=== PATIENT | male | born 1960 | race Caucasian/White ===

== ENCOUNTER 2018-01-06 16:48 | Emergency (ER) | payer BC ==
--- NOTE | 2018-01-06 19:06 | ED ---
General Adult HPI - General Chief complaint: Psychiatric Symptoms Stated complaint: Mental health Time Seen by Provider: 01/06/18 17:32 Source: patient Mode of arrival: ambulatory Limitations: no limitations - History of Present Illness Initial comments: 57 years old male complaining about the confusion he has a history of DVT and PE and he is on now blood thinners he was used to be on [place] now he is on a Coumadin he said he feels there is some formula he his mind is not clear and now he feels he is confused so does his family also family feels he has been depressed for the last 3 days he hasn't got out of the bed which is a pretty active and dry he is on the golf the time and also been complaining about chest pressure off-and-on for about a 1 month now he was seen at [facility]. He had a complete cardiac workup according to his family and he was negative. he denies any suicidal or homicidal ideation. - Related Data Home Medications Medication Instructions Recorded Confirmed Acetaminophen Tab [Tylenol Tab] 325 mg PO Q4H PRN 01/06/18 01/06/18 Levothyroxine Sodium [Synthroid] 200 mcg PO DAILY 01/06/18 01/06/18 Warfarin Sodium 10 mg PO SUTUWETHSA 01/06/18 01/06/18 Warfarin [Coumadin] 12.5 mg PO MOFR 01/06/18 01/06/18 Allergies Allergy/AdvReac Type Severity Reaction Status Date / Time Sulfa (Sulfonamide Allergy Unknown Verified 01/06/18 19:06 Antibiotics) Review of Systems ROS Statement: Those systems with pertinent positive or pertinent negative responses have been documented in the HPI. ROS Other: All systems not noted in ROS Statement are negative. Past Medical History Past Medical History: Osteoarthritis (OA), Pulmonary Embolus (PE), Thyroid Disorder Additional Past Medical History / Comment(s): vertigo Past Surgical History: Orthopedic Surgery, Tonsillectomy Additional Past Surgical History / Comment(s): radiation to throid, IVC blood clot filter Past Psychological History: Anxiety, Depression Smoking Status: Former smoker Past Alcohol Use History: Rare Past Drug Use History: None Reported General Exam - General Exam Comments Initial Comments: General: The patient is awake and alert, in no distress, and does not appear acutely ill. GCS is 15 Skin: Skin is warm and dry and no rashes or lesions are noted. Eye: Pupils are equal, round and reactive to light, extra-ocular movements are intact; there is normal conjunctiva bilaterally. Ears, nose, mouth and throat: There are moist mucous membranes and no oral lesions. Neck: The neck is supple, there is no tenderness or JVD. Cardiovascular: There is a regular rate and rhythm. No murmur, rub or gallop is appreciated. Respiratory: To auscultation bilateral, no wheezing no rhonchi no distress respiratory aviles noticed Gastrointestinal: Soft, non-distended, non-tender abdomen without masses or organomegaly noted. There is no rebound or guarding present. Bowel sounds are unremarkable. Back: There is no tenderness to palpation in the midline. There is no obvious deformity. Musculoskeletal: Normal ROM, no tenderness, There is no pedal edema. There is no calf tenderness or swelling. No cords were appreciated. Neurological: CN II-XII intact, Cranial nerves III through XII are intact. There are no obvious motor or sensory deficits. Coordination appears grossly intact. Speech is normal. Psychiatric: Cooperative, seems depressed him and denies any suicidal or homicidal ideation Limitations: no limitations Course Vital Signs 01/06/18 01/06/18 17:11 18:20 Temperature 98 F Pulse Rate 96 Respiratory 18 16 Rate Blood Pressure 111/75 O2 Sat by Pulse 98 Oximetry Patient is reassessed at down at 2100 white count is 13.1 compressive metabolic panel is normal head CT is normal chest x-rays normal INR and troponin are unremarkable and now he is medically cleared to consult EPS to look into his depression clinically he does seem depressed. EKG is normal sinus ventricular rate is 82 KS interval is 144 QRS duration is 1 of 4 QT/QTc is 374/460 review of this EKG revealed T-wave inversion in lead [address] elevation or ST depression noticed Medical Decision Making - Lab Data Result diagrams: 01/06/18 19:45 01/06/18 19:45 Lab Results 01/06/18 01/06/18 01/06/18 Range/Units 19:45 19:45 19:45 WBC 13.1 H (3.8-10.6) k/uL RBC 5.12 (4.30-5.90) m/uL Hgb 15.5 (13.0-17.5) gm/dL Hct 46.2 (39.0-53.0) % MCV 90.1 (80.0-100.0) fL MCH 30.3 (25.0-35.0) pg MCHC 33.7 (31.0-37.0) g/dL RDW 13.3 (11.5-15.5) % Plt Count 182 (150-450) k/uL Neutrophils % 64 % Lymphocytes % 25 % Monocytes % 7 % Eosinophils % 2 % Basophils % 0 % Neutrophils # 8.4 H (1.3-7.7) k/uL Lymphocytes # 3.3 (1.0-4.8) k/uL Monocytes # 0.9 (0-1.0) k/uL Eosinophils # 0.2 (0-0.7) k/uL Basophils # 0.1 (0-0.2) k/uL PT (9.0-12.0) sec INR (<1.2) APTT (22.0-30.0) sec Sodium 137 (137-145) mmol/L Potassium 4.4 (3.5-5.1) mmol/L Chloride 109 H (98-107) mmol/L Carbon Dioxide 20 L (22-30) mmol/L Anion Gap 8 mmol/L BUN 24 H (9-20) mg/dL Creatinine 0.89 (0.66-1.25) mg/dL Est GFR (CKD-EPI)AfAm >90 (>60 ml/min/1.73 sqM) Est GFR (CKD-EPI)NonAf >90 (>60 ml/min/1.73 sqM) Glucose 96 (74-99) mg/dL Calcium 10.0 (8.4-10.2) mg/dL Total Bilirubin 0.3 (0.2-1.3) mg/dL AST 23 (17-59) U/L ALT 41 (21-72) U/L Alkaline Phosphatase 94 (38-126) U/L Total Creatine Kinase 87 (55-170) U/L CK-MB (CK-2) 1.0 (0.0-2.4) ng/mL CK-MB (CK-2) Rel Index 1.1 Troponin I <0.012 (0.000-0.034) ng/mL Total Protein 6.3 (6.3-8.2) g/dL Albumin 4.0 (3.5-5.0) g/dL Urine Color Urine Appearance (Clear) Urine pH (5.0-8.0) Ur Specific [place] (1.001-1.035) Urine Protein (Negative) Urine Glucose (UA) (Negative) Urine Ketones (Negative) Urine Blood (Negative) Urine Nitrite (Negative) Urine Bilirubin (Negative) Urine Urobilinogen (<2.0) mg/dL Ur Leukocyte Esterase (Negative) 01/06/18 01/06/18 Range/Units 19:45 22:10 WBC (3.8-10.6) k/uL RBC (4.30-5.90) m/uL Hgb (13.0-17.5) gm/dL Hct (39.0-53.0) % MCV (80.0-100.0) fL MCH (25.0-35.0) pg MCHC (31.0-37.0) g/dL RDW (11.5-15.5) % Plt Count (150-450) k/uL Neutrophils % % Lymphocytes % % Monocytes % % Eosinophils % % Basophils % % Neutrophils # (1.3-7.7) k/uL Lymphocytes # (1.0-4.8) k/uL Monocytes # (0-1.0) k/uL Eosinophils # (0-0.7) k/uL Basophils # (0-0.2) k/uL PT 29.2 H (9.0-12.0) sec INR 3.3 H (<1.2) APTT 33.0 H (22.0-30.0) sec Sodium (137-145) mmol/L Potassium (3.5-5.1) mmol/L Chloride (98-107) mmol/L Carbon Dioxide (22-30) mmol/L Anion Gap mmol/L BUN (9-20) mg/dL Creatinine (0.66-1.25) mg/dL Est GFR (CKD-EPI)AfAm (>60 ml/min/1.73 sqM) Est GFR (CKD-EPI)NonAf (>60 ml/min/1.73 sqM) Glucose (74-99) mg/dL Calcium (8.4-10.2) mg/dL Total Bilirubin (0.2-1.3) mg/dL AST (17-59) U/L ALT (21-72) U/L Alkaline Phosphatase (38-126) U/L Total Creatine Kinase (55-170) U/L CK-MB (CK-2) (0.0-2.4) ng/mL CK-MB (CK-2) Rel Index Troponin I (0.000-0.034) ng/mL Total Protein (6.3-8.2) g/dL Albumin (3.5-5.0) g/dL Urine Color Yellow Urine Appearance Clear (Clear) Urine pH 5.0 (5.0-8.0) Ur Specific [place] 1.028 (1.001-1.035) Urine Protein Trace H (Negative) Urine Glucose (UA) Negative (Negative) Urine Ketones Negative (Negative) Urine Blood Negative (Negative) Urine Nitrite Negative (Negative) Urine Bilirubin Negative (Negative) Urine Urobilinogen <2.0 (<2.0) mg/dL Ur Leukocyte Esterase Negative (Negative) Disposition Clinical Impression: Confusion, Chest pain, Depression Disposition: HOME SELF-CARE Condition: Good Instructions: Depression (ED) Additional Instructions: Shouldn't was educated about seeing the psychologist and psychiatrist he agrees with that and he was advised to return to ER if symptoms get worse Is patient prescribed a controlled substance at d/c from ED?: No Referrals: Jorge A Mares PAC [Primary Care Provider] - 1-2 days
[2018-01-06 19:52] LABS: Basophils # (A) 0.1 k/uL (0-0.2); Basophils % (A) 0 %; Eosinophils # (A) 0.2 k/uL (0-0.7); Eosinophils % (A) 2 %; HCT 46.2 % (39.0-53.0); HGB 15.5 gm/dL (13.0-17.5); Lymphocytes # (A) 3.3 k/uL (1.0-4.8); Lymphocytes % (A) 25 %; MCH 30.3 pg (25.0-35.0); MCHC 33.7 g/dL (31.0-37.0); MCV 90.1 fL (80.0-100.0); Mean Platelet Volume 7.7; Monocytes # (A) 0.9 k/uL (0-1.0); Monocytes % (A) 7 %; Neutrophils # (A) 8.4 k/uL (1.3-7.7); Neutrophils % (A) 64 %; Platelet Count 182 k/uL (150-450); RBC 5.12 m/uL (4.30-5.90); RDW 13.3 % (11.5-15.5); WBC 13.1 k/uL (3.8-10.6)
[2018-01-06 20:14] VITALS: RESP 16
[2018-01-06 20:20] LABS: ALT 41 U/L (21-72); AST 23 U/L (17-59); Alkaline Phosphatase 94 U/L (38-126); Anion Gap 8 mmol/L; Blood Urea Nitrogen 24 mg/dL (9-20); Carbon Dioxide 20 mmol/L (22-30); Chloride 109 mmol/L (98-107); Glucose 96 mg/dL (74-99); Potassium 4.4 mmol/L (3.5-5.1); Sodium 137 mmol/L (137-145); Total Bilirubin 0.3 mg/dL (0.2-1.3); Total Protein 6.3 g/dL (6.3-8.2)
[2018-01-06 20:21] LABS: Creatine Kinase 87 U/L (55-170)
[2018-01-06 20:22] LABS: INR 3.3 (<1.2); Prothrombin Time 29.2 sec (9.0-12.0)
--- NOTE | 2018-01-06 20:33 | CT ---
EXAMINATION TYPE: CT brain wo con DATE OF EXAM: 01/06/2018 COMPARISON: None HISTORY: CONFUSION AND DIZZINESS CT DLP: 1049.8 mGycm Automated exposure control for dose reduction was used. FINDINGS: Ventricles of normal size. There is no mass effect nor midline shift. There is no sign of intracrania l hemorrhage. The calvarium is intact. IMPRESSION: NEGATIVE CT SCAN OF THE BRAIN.
[2018-01-06 20:34] LABS: Troponin I <0.012 ng/mL (0.000-0.034)
--- NOTE | 2018-01-06 20:35 | XR ---
EXAMINATION TYPE: XR chest 2V DATE OF EXAM: 01/06/2018 COMPARISON: NONE HISTORY: Altered mental status TECHNIQUE: Frontal and lateral views of the chest are obtained. FINDINGS: There is no heart failure nor confluent pneumonic infiltrate. Heart size is normal. Bony t horax is intact. There is spurring in the thoracic spine. There is no sign of pleural effusion. IMPRESSION: No active cardiopulmonary disease.
[2018-01-06 22:24] LABS: Appearance,Urine Clear (Clear); Bilirubin,Urine Negative (Negative); Blood,Urine Negative (Negative); Color,Urine Yellow; Glucose,Urine (UA) Negative (Negative); Ketones,Urine Negative (Negative); Leukocyte Esterase,Urine Negative (Negative); Nitrite,Urine Negative (Negative); Protein,Urine Trace (Negative); Specific Gravity,Urine 1.028 (1.001-1.035); Urobilinogen,Urine <2.0 mg/dL (<2.0)
[2018-01-06 22:34] LABS: Amphetamine Screen,Urine Not Detected (NotDetected); Barbiturate Screen,Urine Not Detected (NotDetected); Benzodiazepines Screen,Urine Not Detected (NotDetected); Cocaine Screen,Urine Not Detected (NotDetected); Methadone Screen, Urine Not Detected (NotDetected); Opiate Screen,Urine Not Detected (NotDetected); Oxycodone Screen, Urine Not Detected (NotDetected); Phencyclidine Screen,Urine Not Detected (NotDetected); Tricyclic Antidepressant,Urine Not Detected (NotDetected); Urn Cannabinoid Scrn Detected (NotDetected)
[2018-01-06 22:35] VITALS: BP 117/60; PULSE 82; TEMP 98.3
== END 2018-01-06 22:30 | disposition home or self-care (01) ==
LOC: EC 16:48
DX: F32.9 Major depressive disorder, single episode, unspecified (principal); R41.0 Disorientation, unspecified; R07.89 Other chest pain; E07.9 Disorder of thyroid, unspecified; Z86.711 Personal history of pulmonary embolism; Z87.891 Personal history of nicotine dependence; Z79.01 Long term (current) use of anticoagulants; Z79.899 Other long term (current) drug therapy; Z88.2 Allergy status to sulfonamides
CPT/HCPCS: 36415; 70450; 71046; 80053; 80306; 81003; 82075; 82550; 82553; 84484; 85025; 85610; 85730; 93005; 99285

== ENCOUNTER 2018-12-03 12:36 | Inpatient (IN) | payer BC ==
--- NOTE | 2018-12-03 14:11 | ED ---
Psych HPI - General Chief Complaint: Psychiatric Symptoms Stated Complaint: Mental Health Time Seen by Provider: 12/03/18 13:00 Source: patient, RN notes reviewed, old records reviewed Mode of arrival: ambulatory - History of Present Illness Initial Comments: This is a 58-year-old male to the ER for evaluation. Today comes in the ER for evaluation of psychiatric illness per patient is expressed recent increase in depression, showing increased illness and psychiatric disease. Patient states that he does want to kill self and is having chest regarding suicide. MD Complaint: suicidal ideation, feels depressed -: unknown Associated Psychiatric Symptoms: depression, suicidal ideation History of same: Yes Quality: constant Improves With: none Worsens With: none Context: not taking psychiatric medications, significant life stressor Associated Symptoms: denies other symptoms Treatments Prior to Arrival: placed on mental health hold If Self Harm: admits thoughts of self harm - Related Data Home Medications Medication Instructions Recorded Confirmed Acetaminophen Tab [Tylenol Tab] 325 mg PO Q4H PRN 01/06/18 12/03/18 Levothyroxine Sodium [Synthroid] 200 mcg PO DAILY 01/06/18 12/03/18 Warfarin Sodium 10 mg PO SUTUWETHSA 01/06/18 12/03/18 Warfarin [Coumadin] 12.5 mg PO MOFR 01/06/18 12/03/18 PARoxetine [Paxil] 20 mg PO DAILY 12/03/18 12/03/18 Allergies Allergy/AdvReac Type Severity Reaction Status Date / Time Sulfa (Sulfonamide Allergy Unknown Verified 12/03/18 13:06 Antibiotics) Review of Systems ROS Statement: Those systems with pertinent positive or pertinent negative responses have been documented in the HPI. ROS Other: All systems not noted in ROS Statement are negative. Past Medical History Past Medical History: Osteoarthritis (OA), Pulmonary Embolus (PE), Thyroid Disorder Additional Past Medical History / Comment(s): vertigo History of Any Multi-Drug Resistant Organisms: None Reported Past Surgical History: Orthopedic Surgery, Tonsillectomy Additional Past Surgical History / Comment(s): radiation to throid, IVC blood clot filter Past Psychological History: Anxiety, Depression Smoking Status: Former smoker Past Alcohol Use History: Rare Past Drug Use History: None Reported General Exam Limitations: no limitations General appearance: alert, in no apparent distress Head exam: Present: atraumatic, normocephalic, normal inspection Eye exam: Present: normal appearance, PERRL, EOMI. Absent: scleral icterus, conjunctival injection, periorbital swelling ENT exam: Present: normal exam, mucous membranes moist Neck exam: Present: normal inspection. Absent: tenderness, meningismus, lymphadenopathy Respiratory exam: Present: normal lung sounds bilaterally. Absent: respiratory distress, wheezes, rales, rhonchi, stridor Cardiovascular Exam: Present: regular rate, normal rhythm, normal heart sounds. Absent: systolic murmur, diastolic murmur, rubs, gallop, clicks GI/Abdominal exam: Present: soft, normal bowel sounds. Absent: distended, tenderness, guarding, rebound, rigid Extremities exam: Present: normal inspection, full ROM, normal capillary refill. Absent: tenderness, pedal edema, joint swelling, calf tenderness Back exam: Present: normal inspection Neurological exam: Present: alert, oriented X3, CN II-XII intact Psychiatric exam: Present: normal affect, normal mood Skin exam: Present: warm, dry, intact, normal color. Absent: rash Course Vital Signs 12/03/18 12:52 Temperature 97.9 F Pulse Rate 89 Respiratory 18 Rate Blood Pressure 109/74 O2 Sat by Pulse 97 Oximetry - Reevaluation(s) Reevaluation #1: 12/03/18 15:13 Medically clear for psychiatric evaluation Medical Decision Making - Medical Decision Making 58 male the ER for evaluation presented today for evaluation regards to psychiatric illness. Patient will be admitted for psychiatric illness, evaluation and treatment Disposition Clinical Impression: Depression, Suicidal ideation Disposition: TRANSFER TO PSYCH HOSP/UNIT Condition: Fair Is patient prescribed a controlled substance at d/c from ED?: No
[2018-12-03] MEDS ORDERED: MAGNESIUM HYDROXIDE 2,400 MG/10 ML CUP PO PRN (16:00)
[2018-12-03] MEDS ORDERED: ACETAMINOPHEN TAB 325 MG TAB PO PRN ×2 (16:00→16:02)
[2018-12-03] MEDS ORDERED: MAG HYDROX/AL HYDROX/SIMETH 30 ML CUP PO PRN (16:00)
[2018-12-03 17:11] LABS: INR 2.4 (<1.2); Prothrombin Time 23.1 sec (9.0-12.0)
[2018-12-03 17:30] VITALS: BMI 34.0
[2018-12-03] MEDS: WARFARIN 2.5 MG TAB PO SCH (18:54)
[2018-12-03] MEDS: WARFARIN 10 MG TAB PO SCH (18:54)
[2018-12-04 03:53] LABS: Hemoglobin A1C 6.4 % (4.0-6.0)
[2018-12-04] MEDS: LEVOTHYROXINE 100 MCG TAB PO SCH (06:24)
--- NOTE | 2018-12-04 07:09 | P.MDCNMH ---
History of Present Illness H&P Date: 12/04/18 Chief Complaint: depression and suicidal ideation 58-year-old male with history of depression, hypothyroid, clotting disorder Patient presented the hospital with overwhelming depression and suicidal ideation due to overwhelming depression . patient reports taking Paxil but is not helping to control his symptoms. Patient reports being compliant with his levothyroxine and Coumadin patient has history of clotting disorder with mutation MTHFR He currently denies any physical complaints denies any chest pain or trouble breathing denies any fevers or chills or coughing denies any abdominal pain nausea or vomiting. Patient denies any GI bleeding Review of Systems Pertinent positives as noted in HPI. 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 History of Any Multi-Drug Resistant Organisms: None Reported Past Surgical History: Orthopedic Surgery, Tonsillectomy Additional Past Surgical History / Comment(s): radiation to throid, IVC blood clot filter Additional Past Anesthesia/Blood Transfusion Reaction / Comment(s): no transfusion hx Past Psychological History: Anxiety, Depression Smoking Status: Current some day smoker Past Alcohol Use History: Rare Additional Past Alcohol Use History / Comment(s): none Past Drug Use History: None Reported - Past Family History family Additional Family Medical History / Comment(s): denies clotting disorder in the famil y Medications and Allergies Home Medications Medication Instructions Recorded Confirmed Type Acetaminophen Tab [Tylenol Tab] 325 mg PO Q4H PRN 01/06/18 12/03/18 History Levothyroxine Sodium [Synthroid] 200 mcg PO DAILY 01/06/18 12/03/18 History Warfarin Sodium 10 mg PO SUTUTHSA 01/06/18 12/03/18 History Warfarin [Coumadin] 12.5 mg PO MOWEFR 01/06/18 12/03/18 History PARoxetine [Paxil] 20 mg PO DAILY 12/03/18 12/03/18 History Allergies Allergy/AdvReac Type Severity Reaction Status Date / Time Sulfa (Sulfonamide Allergy Unknown Verified 12/03/18 16:39 Antibiotics) Physical Exam Vitals: Vital Signs Temp Pulse Pulse Resp BP BP Pulse Ox 12/04/18 06:39 97.7 F 62 16 106/59 12/03/18 16:48 98 F 74 18 117/68 12/03/18 16:30 98.4 F 84 16 115/78 98 12/03/18 12:52 97.9 F 89 18 109/74 97 Intake and Output 12/03/18 12/04/18 12/04/18 22:59 06:59 14:59 Other: Weight 107.507 kg Constitutional: No acute distress, conversant, pleasant Eyes: Anicteric sclerae, moist conjunctiva, no lid-lag Pupils equal round reactive to light ENMT: NC/AT Oropharynx clear, no erythema, exudates Neck: Supple, FROM, no masses, or JVD No carotid bruits No thyromegaly Lungs: Clear to auscultation Clear to percussion Normal respiratory effort, no accessory muscle use Cardiovascular: Heart regular in rate and rhythm, No murmurs, gallops, or rubs No peripheral edema Abdominal: Soft Nontender, no guarding, rebound or rigidity Abdomen moving with respiration Normoactive bowel sounds No hepatomegaly, No splenomegaly No palpable mass No abdominal wall hernia noted Skin: Normal temperature, tone, texture, turgor No induration No subcutaneous nodules No rash, lesions No ulcers Extremities: No digital cyanosis No clubbing Pedal pulses intact and symmetrical Radial pulses intact and symmetrical No calf tenderness Psychiatric: Alert and oriented to person, place and time depressed affect fair judgment Neuro Muscles Strength 5/5 in all 4 extremities Sensation to light touch grossly present throughout Cranial nerves II-XII grossly intact No focal sensory deficits Lymphatics: no palpable cervical or supraclavicular , or inguinal lymph nodes Cranial Nerve Examination - Cranial Nerves Cranial Nerve II- Optic: Intact Cranial Nerve III- Oculomotor: Intact Cranial Nerve IV- Trochlear: Intact Cranial Nerve V- Trigeminal: Intact Cranial Nerve - Abducens: Intact Cranial Nerve VII- Facial: Intact Cranial Nerve VIII- Auditory: Intact Cranial Nerve IX- Glossopharyngeal: Intact Cranial Nerve X- Vagus: Intact Cranial Nerve XI- Accessory: Intact Cranial Nerve XII- Hypoglossal: Intact Results Labs: Abnormal Lab Results - Last 24 Hours (Table) 12/03/18 12/03/18 Range/Units 16:38 16:38 PT 23.1 H (9.0-12.0) sec INR 2.4 H (<1.2) Hemoglobin A1c 6.4 H (4.0-6.0) % Assessment and Plan Assessment: 58-year-old male with history of hypothyroidism and depression and history of clotting disorder medicine consulted to assist with medical management patient admitted for depression and suicidal ideation Plan: Suicidal ideation and depression Management per psych Hypothyroid Continue levothyroxine Check TSH History of clotting disorder continue with Coumadin: INR 2-3 currently therapeutic Dosing by pharmacy Thank you for allowing us to participate in the care of this patient. We will follow peripherally. Do not hesitate to contact us with questions. Someone can be reached from the [facility] hospitalist group at all hours of the day at [phone].
[2018-12-04 08:41] LABS: Basophils % (A) 0 %; Eosinophils # (A) 0.2 k/uL (0-0.7); Eosinophils % (A) 2 %; HCT 45.9 % (39.0-53.0); HGB 14.6 gm/dL (13.0-17.5); Lymphocytes % (A) 26 %; MCH 29.2 pg (25.0-35.0); MCHC 31.8 g/dL (31.0-37.0); MCV 91.9 fL (80.0-100.0); Mean Platelet Volume 7.9; Monocytes # (A) 0.7 k/uL (0-1.0); Monocytes % (A) 6 %; Neutrophils # (A) 7.4 k/uL (1.3-7.7); Neutrophils % (A) 64 %; Platelet Count 158 k/uL (150-450); RBC 4.99 m/uL (4.30-5.90); RDW 13.5 % (11.5-15.5); WBC 11.6 k/uL (3.8-10.6)
[2018-12-04 08:47] LABS: ALT 24 U/L (21-72); AST 20 U/L (17-59); African American GFR (CKD) >90 (>60 ml/min/1.73 sqM); Albumin 3.9 g/dL (3.5-5.0); Alkaline Phosphatase 86 U/L (38-126); Anion Gap 8 mmol/L; Blood Urea Nitrogen 14 mg/dL (9-20); Calcium 9.1 mg/dL (8.4-10.2); Carbon Dioxide 25 mmol/L (22-30); Chloride 107 mmol/L (98-107); Cholesterol 194 mg/dL (<200); Glucose 100 mg/dL (74-99); HDL Cholesterol 41 mg/dL (40-60); LDL Cholesterol,Calculated 128 mg/dL (0-99); Potassium 4.6 mmol/L (3.5-5.1); Sodium 140 mmol/L (137-145); Total Bilirubin 0.5 mg/dL (0.2-1.3); Total Protein 6.2 g/dL (6.3-8.2); Triglycerides 126 mg/dL (<150)
[2018-12-04] MEDS ORDERED: PARoxetine 20 MG TAB PO SCH (09:00)
[2018-12-04 09:08] LABS: INR 2.3 (<1.2); Prothrombin Time 22.4 sec (9.0-12.0)
[2018-12-04] MEDS ORDERED: PARoxetine 20 MG TAB PO STA (11:34)
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
[2018-12-04] MEDS: WARFARIN 10 MG TAB PO SCH (17:33)
[2018-12-05] MEDS: LEVOTHYROXINE 100 MCG TAB PO SCH (06:14)
[2018-12-05 08:52] LABS: INR 2.4 (<1.2); Prothrombin Time 23.1 sec (9.0-12.0)
[2018-12-05] MEDS ORDERED: PARoxetine 20 MG TAB PO SCH (09:00)
[2018-12-05] MEDS: PARoxetine 20 MG TAB PO SCH (14:44)
--- NOTE | 2018-12-05 15:59 | PN ---
PROGRESS NOTE DATE OF SERVICE: 12/05/2018. CHIEF COMPLAINT: The patient was depressed. He had suicide thoughts. He says he felt he was in a fog and could not think. INTERVAL HISTORY: Patient has been doing fair. He had a quiet evening last night. He comes out in the day area. He will interact some with others. Mostly he keeps to himself. He will read. He seems to have a fair to good concentration when he is engaged in some reading. He said he slept fair last night. He notes that when he wakes up in the morning, he will get some anxiety and panicky symptoms. He says he gets shaky. He seemed to suggest that he may get that about a half hour after he takes his morning medications though, he also says that it seems to be during the time when he is just getting up. He is trying to get to his meal. He gets called for taking medications and so forth. He acknowledges that he has been having that problem at home prior to coming into the hospital. He still relates it to being about a half hour after he takes Paxil. He says that overall he is doing fair. He has been attending groups. He says that he has a lot of worries and has had difficulty sorting out his thoughts. He continues to be quite depressed in his mood. He is comfortable with the idea setting up a family meeting with his for further treatment planning. He appears to tolerate his psychotropic medications. MENTAL STATUS: Patient gave good eye contact. Psychomotor activity was restless. He answered questions with direct responses. His thoughts were clear. His affect was quite anxious. He was depressed. He seems significantly distressed. There was no indication of thought disorder. Cognition was clear. ASSESSMENT: I will continue the current diagnosis and treatment plan. I will continue psychotropic medications the same. It is not clear that he is having a side effect from his Paxil where he gets restless and anxious, possibly half hour after he takes his medications. There is a significant likelihood that he may be having diurnal mood variation related to depression and that the morning time is worse for him. At this point, I will switch his Paxil to 2 in the afternoon. I discussed with the patient that if he still has the morning time issues after switching the Paxil to the afternoon then we know the main issue is depression, not his medications. If he has less problems in the morning time, though then has some similar reaction in the afternoon after he takes his Paxil, then there might be consideration to switching to an alternative antidepressant. I reviewed treatment issues, dosing strategies relating to his antidepressant. I discussed that given the seriousness of his depression, we may need to consider further increase in Paxil whether here or as an outpatient. I would look for priority of setting up a family meeting with the patient and his . We will continue to focus on stabilization and discharge planning. ANA / GINETTE: [id number] /
[2018-12-05] MEDS: WARFARIN 10 MG TAB PO SCH (18:06)
[2018-12-06] MEDS ORDERED: LEVOTHYROXINE 75 MCG TAB PO SCH (06:30)
[2018-12-06 09:32] LABS: INR 2.2 (<1.2); Prothrombin Time 21.3 sec (9.0-12.0)
--- NOTE | 2018-12-06 11:44 | P.PN ---
Progress Note - Text Progress Note Date: 12/06/18 Interval History: Patient is a 58-year-old male who is being seen in coverage. Patient was admitted due to increasing anxiety and depressive symptoms. Patient has been treated as an outpatient with Paxil which had been increased recently from 10 mg to 20 mg. He states that his anxiety symptoms consist of feeling anxious and nauseated. He denies any current suicidal thoughts. Patient states that he slept okay last night states that he went to bed early seeing if he could sleep longer. Patient states that he stayed in bed and was unable to fall asleep easily. Mental Status: Appearance/Attitude: Patient is neatly and appropriately dressed, makes eye contact and is cooperative. Behavior: Patient does not exhibit any psychomotor agitation or retardation. Speech/Language: Patient's speech is spontaneous of normal volume and rhythm and he is coherent. Thought Process: Patient is goal-directed there is no evidence of loose association or flight of ideas Thought Content: Patient denies any auditory or visual hallucinations and no delusions or paranoid ideation or elicited. Patient states that he still feeling anxious which he describes as nausea. He states that he didn't sleep well last night and had difficulty falling asleep. Patient states that he had been feeling anxious and depressed as an outpatient even with an increase in Paxil from 10-20 mg. Suicidal/Homicidal Ideation: Patient denies any current suicidal or homicidal ideation Sensorium/Cognition: Patient is alert and oriented to person, place, and time and his recent and remote memory are grossly intact. Mood/Affect:patient's mood remains anxious and his affect appropriate to his mood Insight/Judgment: Patient's insight and judgment are fair Assessment: patient was admitted and states that he been feeling anxious and depressed, patient's Synthroid was decreased because his TSH is quite low the patient is status post radiation treatment for hyperthyroidism. Patient's Paxil had been increased as an outpatient from 10 mg to 20 and he states he continued to feel anxious and describes his morning nausea while he was feeling anxiety. Patient is not reporting any current suicidal thoughts. Patient states he has difficulty falling asleep at night. Plan: patient will continue on Paxil 40 mg which was increased at this time of admission to target his depressive and anxiety symptoms. Patient's TSH was quite low and his Synthroid dose was decreased again to 100 g daily, patient continues to require hospitalization to further stabilize his mood.
[2018-12-06] MEDS: PARoxetine 20 MG TAB PO SCH (15:20)
[2018-12-06] MEDS: WARFARIN 10 MG TAB PO SCH (18:57)
[2018-12-06] MEDS: WARFARIN 2.5 MG TAB PO SCH (18:57)
[2018-12-07] MEDS: LEVOTHYROXINE 100 MCG TAB PO SCH (06:26)
[2018-12-07 10:02] LABS: INR 2.2 (<1.2); Prothrombin Time 21.5 sec (9.0-12.0)
--- NOTE | 2018-12-07 10:58 | P.PN ---
Progress Note - Text Interval history: The patient is found in group he follows me to an interview room. The patient was admitted for suicidal ideation. The psychiatric evaluation and subsequent progress notes were reviewed. Staff report that the patient has been complying with groups. The patient indicates that he has been feeling depressed and overwhelmed. He states that he feels like he is in a fall. He has difficulty focusing and concentrating. He reports his difficult to read a book. He indicates he had significant difficulty managing tasks at work. He describes feelings of anxiety and nervousness that are pervasive and persistent. We reviewed his medication regimen. He states he's been on Paxil for almost a year. The dose was low at 10 mg and then numerous weeks ago was titrated to 20 mg. He noticed no benefit and has felt as though the Paxil may be causing side effects. This was noted in the psychiatric evaluation. The dose of the Paxil however was titrated to 40 mg and the timing was moved to the afternoon. The patient states he doesn't feel comfortable using the Paxil any longer he doesn't feel that it's helping and it may be causing side effect. He expresses concerns that he may no longer have a job. He states he has concerns about his marriage and is worried that his would leave him. Mental status exam: The patient is alert he appears his stated age she is dressed in his own clothing hygiene adequate grooming fair. Speech is fluent spontaneous nonpressured. He reports having some hopeless thoughts. He feels overwhelmed. He describes feeling nervous and anxious. Concentration and focus reported to be impaired. Affect is bland. He demonstrates no hypomanic or manic symptoms. He demonstrates no tangential thinking loose associations or flight of ideas. He is circumstantial at times. He reports no auditory or visual hallucinations or specific delusions. There is no observed evidence of psychosis. He demonstrates no verbal or physical aggressiveness. Insight and judgment limited. Plan: The patient demonstrates continued mood and anxiety symptoms. He feels that his cognitive abilities are impaired as well. It does not appear that the Paxil has provided benefit and may be causing side effect. He is agreeable to having us taper him off of Paxil. We discussed initiating Lexapro as an alternative. We discussed potential benefits and side effects of Lexapro and his questions were answered. His TSH was noted to be low internal medicine has reduced his Synthroid to 100 g. We discussed symptoms someone might experience if the the levothyroxine was too high previously. Vital signs reviewed. The patient feels debilitated by his mood and anxiety symptoms he requires continued psychiatric hospitalization.
[2018-12-07] MEDS: WARFARIN 10 MG TAB PO SCH (17:23)
[2018-12-07] MEDS ORDERED: PARoxetine 20 MG TAB PO SCH (21:00)
[2018-12-08] MEDS: LEVOTHYROXINE 100 MCG TAB PO SCH (06:41)
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
[2018-12-08] MEDS: ESCITALOPRAM 5 MG TAB PO SCH (09:56)
[2018-12-08 11:45] LABS: INR 2.4 (<1.2); Prothrombin Time 23.7 sec (9.0-12.0)
[2018-12-08] MEDS: WARFARIN 2.5 MG TAB PO SCH (17:03)
[2018-12-08] MEDS: WARFARIN 10 MG TAB PO SCH (17:03)
[2018-12-08] MEDS: PARoxetine 10 MG TAB PO SCH (21:03)
[2018-12-09] MEDS: LEVOTHYROXINE 100 MCG TAB PO SCH (06:20)
[2018-12-09] MEDS: ESCITALOPRAM 5 MG TAB PO SCH (07:35)
[2018-12-09 09:47] LABS: INR 2.4 (<1.2); Prothrombin Time 23.6 sec (9.0-12.0)
--- NOTE | 2018-12-09 15:14 | P.PN ---
Progress Note - Text Progress Note Date: 12/09/18 Interval History: Patient is a 58-year-old [place] [facility] [place] he reports that he wasn't anxious this morning when he woke up but did get a little more anxiousness afternoon but attributes it to having coffee with his lunch. Patient states that is not any suicidal thoughts is eating well but felt more tired today than he has on other days. Patient states that he is attending groups and activities. Patient is practicing deep breathing at night to help himself fall asleep easier. He reports no side effects from the medication changes. Mental Status: Appearance/Attitude: Patient is casually dressed, makes good eye contact and was cooperative. Behavior: Patient does not exhibit any psychomotor agitation or retardation. Speech/Language: Patient is spontaneous, speech is of normal volume and rhythm and he is coherent. Thought Process: Patient is goal-directed there is no evidence of loose association or flight of ideas Thought Content: Patient denies any auditory or visual hallucinations and no delusions or paranoid ideation or elicited. Patient reports that he was feeling less anxious this morning when he awakened, he is feeling a little more anxious this afternoon and states that it may be due to the fact that he drank some coffee at lunchtime. Patient reports that he continues to have some difficulty falling asleep but cannot quantify how long it takes him to fall asleep and reports feeling a little more tired today. Suicidal/Homicidal Ideation: Patient denies any current suicidal or homicidal ideation Sensorium/Cognition: Patient is alert and oriented to person, place, and time and his recent and remote memory grossly intact Mood/Affect: Patient's mood is slightly depressed and his affect is appropriate Insight/Judgment: Patient's insight and judgment are fair Assessment: Patient reports that he was feeling less anxious this morning that his anxiety returned a bit this afternoon he thinks it may be due to drinking coffee at lunchtime. Patient states he's feeling a little tired today and a little more difficulty falling asleep last night but is unable to quantify how long he was awake 4. Patient reports no side effects from his medication changes. He's been attending groups and activities and his appetite is good. Plan: Patient will continue on Paxil 10 mg which was decreased yesterday and he was begun on Lexapro 5 mg and a cross titration. Patient requires hospitalization to continue to stabilize his mood and anticipating discharge within the next several days.
[2018-12-09] MEDS: WARFARIN 10 MG TAB PO SCH (17:50)
[2018-12-09] MEDS: PARoxetine 10 MG TAB PO SCH (21:22)
[2018-12-10] MEDS: LEVOTHYROXINE 100 MCG TAB PO SCH (06:23)
[2018-12-10 07:06] VITALS: BP 121/74; PULSE 68; RESP 16; TEMP 97.7
[2018-12-10] MEDS: ESCITALOPRAM 5 MG TAB PO SCH (08:32)
--- NOTE | 2018-12-10 08:57 | P.DS ---
Providers Date of admission: 12/03/18 15:50 Expected date of discharge: 12/10/18 Attending physician: Hung Gonzalez Consults: 12/03/18 16:00 Consult Physician Routine Consulting Provider: Samm Lopez Consult Reason/Comments: medical management Do you want consulting provider notified?: Yes Primary care physician: Physician Nonstaff - Discharge Diagnosis(es) (1) Major depressive disorder, recurrent severe without psychotic features Current Visit: Yes Status: Acute Priority: High Hospital Course: Brief summary of admission note: This patient is a 58-year-old male who was admitted to the mental health unit for suicidal ideation. He p resented reporting depressive and anxiety symptoms as well as cognitive difficulties reporting that he felt like he was in a fog. He had been placed on Paxil and the dose was titrated and there seemed to be no benefit from the medication. For full details please refer to Dr. Huang psychiatric evaluation dated 12/04/2018. Summary of hospital course: The patient was admitted to the mental health unit voluntarily. He was initially seen by Dr. Bettencourt area later I assume the patient's care. The patient was continued on Paxil and the dosage was increased to 40 mg daily. Upon meeting him and having further discussion he felt as though the Paxil really had not been providing any benefit. We also had some concern that the Paxil could contribute to his feeling of "fogginess". We decided that we would cross taper him off of Paxil and onto Lexapro. The patient was seen by internal medicine for routine history and physical exam. It was decided that his Synthroid would be reduced as his TSH was abnormally low. His Coumadin was managed by pharmacy. He attended groups he was cooperative and demonstrated no agitated behavior. He has reported progressive improvement of symptoms while here. He indicates that he feels safe to return home and has no acute intent or plan of harming himself. He will participate in a support meeting involving social work and his this morning prior to discharge. Mental status exam: The patient is alert he is dressed in his own clothing hygiene grooming adequate. Speech is fluent nonpressured spontaneous. He reports his mood is better affect is more expressive. He denies having any suicidal ideation intent or plan. He denies having any homicidal ideation intent or plan. He reports no auditory or visual hallucinations or any specific delusions. There is no observed evidence of psychosis. He demonstrates no tangential thinking loose associations or flight of ideas. He does not appear hypomanic or manic. He demonstrates no verbal or physical aggressiveness. He demonstrates no involuntary repetitive movements. Insight and judgment grossly intact. He remains oriented to person place and date. He describes future oriented thinking. Impressions 1. Major depressive disorder recurrent severe without psychosis Plan: The patient will be discharged today following a successful support meeting involving his . The patient will continue on Lexapro the dose will be increased to 10 mg daily Paxil be discontinued. He will continue following up with his primary care physician and the clinic for INR monitoring. His Synth roid dose was decreased by the internal medicine physician while here to 100 g daily. This will require further follow-up with his primary care physician as well. The patient reports no substance use. At this time there is no imminent safety risk is appropriate for transition to outpatient care. Social work will arrange outpatient follow-up. He is instructed to return to the hospital with any acute safety concerns. Patient Condition at Discharge: Stable Plan - Discharge Summary Discharge Rx Participant: No New Discharge Prescriptions: No Action Warfarin Sodium 10 mg PO SUTUTHSA Acetaminophen Tab [Tylenol Tab] 325 mg PO Q4H PRN PRN Reason: Pain Warfarin [Coumadin] 12.5 mg PO MOWEFR Levothyroxine Sodium [Synthroid] 200 mcg PO DAILY PARoxetine [Paxil] 20 mg PO DAILY Discharge Medication List Acetaminophen Tab [Tylenol Tab] 325 mg PO Q4H PRN 01/06/18 [History] Levothyroxine Sodium [Synthroid] 200 mcg PO DAILY 01/06/18 [History] Warfarin Sodium 10 mg PO SUTUTHSA 01/06/18 [History] Warfarin [Coumadin] 12.5 mg PO MOWEFR 01/06/18 [History] PARoxetine [Paxil] 20 mg PO DAILY 12/03/18 [History] Follow up Appointment(s)/Referral(s): [facility] [Outside] - 12/17/18 11:00 am (Stef Moy pt can call on Thursday to complete intake process for Lucas from [facility] will call him. ) Nonstaff,Physician [Primary Care Provider] - 1-2 days Activity/Diet/Wound Care/Special Instructions: Repeat TSH in 4 weeks
[2018-12-10 08:59] LABS: INR 2.5 (<1.2); Prothrombin Time 23.9 sec (9.0-12.0)
== END 2018-12-10 12:07 | disposition home or self-care (01) | DRG 885 ==
LOC: EC 12:36 → 3MHU 15:50
PROVIDERS: ADMIT Psychiatry & Neurology Psychiatry; ATTEND Psychiatry & Neurology Psychiatry
DX: F33.2 Major depressive disorder, recurrent severe without psychotic features (principal); E72.12 Methylenetetrahydrofolate reductase deficiency; F43.10 Post-traumatic stress disorder, unspecified; E03.9 Hypothyroidism, unspecified; G47.9 Sleep disorder, unspecified; Z79.01 Long term (current) use of anticoagulants; Z79.890 Hormone replacement therapy; Z86.711 Personal history of pulmonary embolism; Z87.891 Personal history of nicotine dependence; Z92.3 Personal history of irradiation; Z79.899 Other long term (current) drug therapy; Z88.2 Allergy status to sulfonamides; Z90.49 Acquired absence of other specified parts of digestive tract
CPT/HCPCS: 80053; 80061; 80329; 82075; 83036; 84443; 85025; 85610; 99285

== ENCOUNTER 2019-08-17 21:04 | Emergency (ER) | payer BC, MEDICAID, OTHER ==
[2019-08-17 21:24] VITALS: RESP 18; TEMP 98.4
[2019-08-17] MEDS ORDERED: MORPHINE SULFATE 4 MG/ML SYRINGE IV STA (21:27)
[2019-08-17] MEDS ORDERED: SODIUM CHLORIDE 0.9% 500 ML 500 ML IV STA (21:27)
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
[2019-08-17 22:10] LABS: Basophils % (A) 0 %; Eosinophils # (A) 0.1 k/uL (0-0.7); Eosinophils % (A) 1 %; HCT 40.6 % (39.0-53.0); HGB 13.6 gm/dL (13.0-17.5); Lymphocytes # (A) 1.8 k/uL (1.0-4.8); Lymphocytes % (A) 16 %; MCH 30.8 pg (25.0-35.0); MCHC 33.4 g/dL (31.0-37.0); MCV 92.3 fL (80.0-100.0); Mean Platelet Volume 8.5; Monocytes # (A) 0.7 k/uL (0-1.0); Monocytes % (A) 6 %; Neutrophils # (A) 8.6 k/uL (1.3-7.7); Neutrophils % (A) 76 %; Platelet Count 139 k/uL (150-450); RBC 4.41 m/uL (4.30-5.90); RDW 12.8 % (11.5-15.5); WBC 11.4 k/uL (3.8-10.6)
[2019-08-17 22:20] LABS: INR 3.2 (<1.2); Partial Thromboplastin Time 31.6 sec (22.0-30.0); Prothrombin Time 30.8 sec (9.0-12.0)
[2019-08-17 22:47] LABS: African American GFR (CKD) >90 (>60 ml/min/1.73 sqM); Anion Gap 7 mmol/L; Blood Urea Nitrogen 18 mg/dL (9-20); Calcium 8.2 mg/dL (8.4-10.2); Carbon Dioxide 20 mmol/L (22-30); Chloride 110 mmol/L (98-107); Glucose 111 mg/dL (74-99); Non-African American GFR(CKD) 83 (>60 ml/min/1.73 sqM); Potassium 4.9 mmol/L (3.5-5.1); Sodium 137 mmol/L (137-145)
[2019-08-17] MEDS ORDERED: HYDROmorphone 0.5 MG/0.5 ML SYRINGE IVP STA (23:24)
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
[2019-08-18] MEDS ORDERED: ACET/COD 300 MG/30 MG STARTER PACK 6 TAB BTL PO STA (00:14)
[2019-08-18 00:36] VITALS: BP 132/83; PULSE 84
== END 2019-08-18 01:00 | disposition home or self-care (01) ==
LOC: EC 21:04
DX: S39.012A Strain of muscle, fascia and tendon of lower back, initial encounter (principal); D68.9 Coagulation defect, unspecified; F17.200 Nicotine dependence, unspecified, uncomplicated; Z88.2 Allergy status to sulfonamides; Z79.01 Long term (current) use of anticoagulants; Z86.711 Personal history of pulmonary embolism; Z86.718 Personal history of other venous thrombosis and embolism; Z97.8 Presence of other specified devices; V49.49XA Driver injured in collision with other motor vehicles in traffic accident, initial encounter; Y93.89 Activity, other specified; Y92.410 Unspecified street and highway as the place of occurrence of the external cause
CPT/HCPCS: 36415; 93005; 80048; 85025; 85610; 85730; 72170; 71045; 72125; 70450; 71260; 74177; 99285; 96374; 96375; J2270; J1170; Q9967